=== PATIENT | female | born 1955 | race Asian ===

== ENCOUNTER → 2022-01-08 11:11 | Outpatient (CLI) | payer BC, SELFPAY ==
--- NOTE | 2022-01-08 | CA_ITS ---
FINAL REPORT TECHNIQUE: Color Doppler, duplex Doppler and compression sonography of the right lower extremity venous system was performed. CLINICAL HISTORY: Patient denies trauma, states she's had leg pain several years. 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 She is complaining of frequent charley horses in the night. FINDINGS: There is no evidence of deep venous thrombosis from the level of the groin to the calf. The veins are patent and compressible. IMPRESSION: No evidence of deep venous thrombosis right lower extremity. Reviewed, Interpreted and Dictated by Alexander Gonsalves III, MD Transcribed by aKshif Loving Authenticated by Alexander Gonsalves III, MD on 01/08/2022 12:39:09 PM [facility]
== END ==
PROVIDERS: PCP Family Medicine; Visit Provider Nurse Practitioner
DX: M79.661 Pain in right lower leg (principal)
CPT/HCPCS: 93971